=== PATIENT | male | born 1970 | race Caucasian/White ===

== ENCOUNTER → 2017-07-05 | Outpatient (CLI) | payer BC ==
[~2017-07-05] MED LIST: CPR500T PO; HYDR-91 PO; OMEP40CA36 PO; VITA1CAP59 PO
--- NOTE | 2017-07-05 16:03 | Diagnostic Imaging Report ---
PROCEDURE: CT right upper extremity without contrast. TECHNIQUE: Multiple contiguous axial images were obtained through the right upper extremity without the use of intravenous contrast. Sagittal and coronal reformations were then performed. INDICATION: Right hand edema and tingling. FINDINGS: The osseous structures appear unremarkable. There is no soft tissue mass or fluid collection identified. There is mild nonspecific subcutaneous edema seen in the index, middle and ring fingers. The joint alignment is satisfactory. No significant arthritic changes are seen. The muscles and tendons appear grossly unremarkable. IMPRESSION: Nonspecific mild subcutaneous edema around the right index, middle and ring fingers. No focal fluid collection or soft tissue mass is identified. Dictated by: Dictated on workstation # [id number]
== END ==
LOC: RAD 10:29
PROVIDERS: ATTEND Nurse Practitioner Family
DX: R60.0 Localized edema (principal)
CPT/HCPCS: 73200

== ENCOUNTER → 2017-07-26 | Outpatient (CLI) | payer BC ==
[~2017-07-26] MED LIST changes: +IOHEXOL 350 MG/ML 100 ML (OMNIPAQUE 350) VIAL IV ONE; +NS 100 ML (IVPB) BAG IV ONE
--- NOTE | 2017-07-26 14:52 | Diagnostic Imaging Report ---
CT angiogram of the right upper extremity with arterial and venous phase performed. Coronal MIP reconstruction technique images are performed. INDICATION: Right upper extremity swelling. 100 mL of Omnipaque 350 is administered intravenously. FINDINGS: The brachiocephalic artery origin from the arch is normal. The right subclavian artery is normal. The axillary, brachial, and radial and ulnar arteries are normal. The venous phase demonstrates normal opacification of the right upper extremity veins with no major thrombosis or evidence of venous obstruction identified. Mild constriction at the junction of the first rib and clavicle is seen without associated significant caliber change in the vein or thrombosis noted. No evidence of vascular thoracic outlet syndrome findings. The soft tissues of the right upper extremity including the muscle bulk in the arm and forearm appear unremarkable. IMPRESSION: Unremarkable right upper extremity CTA and CTV. Dictated by: Dictated on workstation # [id number]
== END ==
LOC: RAD 12:26
PROVIDERS: ATTEND Nurse Practitioner Family
DX: R22.31 Localized swelling, mass and lump, right upper limb (principal); R29.898 Other symptoms and signs involving the musculoskeletal system
CPT/HCPCS: 73206

== ENCOUNTER → 2018-07-20 | Emergency (ER) | payer SELFPAY ==
[~2018-07-20] VITALS: Ht 182.9 cm; Wt 97.5 kg
[~2018-07-20] MED LIST changes: -IOHEXOL 350 MG/ML 100 ML (OMNIPAQUE 350) VIAL IV ONE; +KETOROLAC 60 MG/2 ML VIAL IM ONE; +LISI-556 PO; -NS 100 ML (IVPB) BAG IV ONE; +PROCHLORPERAZINE 10 MG/2ML INJ (COMPAZINE) IM ONE; +diphenhydrAMINE 25 MG TAB (BENADRYL) PO ONE
--- NOTE | 2018-07-20 15:29 | ED Headache ---
General Chief Complaint: Head/Cervical Problems Stated Complaint: HEADACHE Nursing Triage Note: Pt has had a headache for the past few days, with nausea and body aches. Pt stated it is not from his sinuses. Pt stated that his clef palate is opening and might be from that. Pt stated pain is at a 7 and is constant. Nursing Sepsis Screen: No Definite Risk Source: patient, family () Exam Limitations: no limitations History of Present Illness Date Seen by Provider: Jul 20, 2018 Time Seen by Provider: 14:51 Initial Comments Patient is a 48-year-old male who presents to the emergency room accompanied by his with complaints of a migraine for 2 days. He also has nausea and body aches. Patient reports that he's had a cleft palate since and is concerned that it might be related to that. He states that he tried over-the- counter medications without relief. Timing/Duration: other (2 days) Location: global Prior Headaches/Recent Trauma: no recent headache/trauma Associated Symptoms: nausea/vomiting Allergies and Home Medications Allergies Coded Allergies: meperidine HCl (Verified Allergy, Unknown, 07/20/18) Home Medications Lisinopril 5 Mg Tablet, 5 MG PO DAILY, (Reported) Patient Home Medication List Home Medication List Reviewed: Yes Review of Systems Review of Systems Constitutional: no symptoms reported, see HPI Gastrointestinal: see HPI, nausea Psychiatric/Neurological: See HPI, Headache All Other Systems Reviewed Negative Unless Noted: Yes Past Irbwigh-Bmxypy-Aykdwx Hx Past Med/Social Hx: Reviewed Nursing Past Med/Soc Hx Patient Social History Alcohol Use: Denies Use Recreational Drug Use: Yes (14 YRS AGO) Smoking Status: Current Everyday Smoker Type Used: Cigarettes Recent Foreign Travel: No Contact w/Someone Who Travel: No Recent Infectious Disease Expo: No Recent Hopitalizations: No Physical Abuse: No Sexual Abuse: No Mistreated: No Fear: No Past Medical History Surgeries: Yes (Cleft palate) Respiratory: No Cardiac: No Neurological: No Reproductive Disorders: No Gastrointestinal: No Musculoskeletal: No Endocrine: No Integumentary: No Blood Disorders: No Family Medical History Reviewed Nursing Family Hx Physical Exam Vital Signs Vital Signs - First Documented 07/20/18 14:51 Temp 99.1 Pulse 80 Resp 22 B/P (MAP) 134/95 (108) Pulse Ox 98 O2 Delivery Room Air Capillary Refill : Less Than 3 Seconds Height, Weight, BMI Height: 6'0" Weight: 215lbs. oz. 97.838464dp; BMI Method:Stated General Appearance: WD/WN, no apparent distress HEENT: PERRL/EOMI, normal ENT inspection, TMs normal Neck: non-tender, full range of motion, supple, normal inspection Cardiovascular: normal peripheral pulses, regular rate, rhythm, no edema, no gallop, no JVD, no murmur Respiratory: chest non-tender, lungs clear, normal breath sounds, no respiratory distress, no accessory muscle use Extremities: normal capillary refill Crainal Nerves: normal hearing, normal speech, PERRL Coordination/Gait: normal finger to nose Motor/Sensory: no motor deficit, no sensory deficit Skin: normal color, warm/dry Progress/Results/Core Measures Results/Orders My Orders Orders - JENNIFER HADLEY Ketorolac Injection (Toradol Injection) (07/20/18 15:00) Prochlorperazine Injection (Compazine In (07/20/18 15:00) Diphenhydramine Tablet (Benadryl Tablet) (07/20/18 15:00) Ct Head/Maxillofacial Wo (07/20/18 14:49) Medications Given in ED Vital Signs/I&O 07/20/18 07/20/18 14:51 16:42 Temp 99.1 Pulse 80 70 Resp 22 16 B/P (MAP) 134/95 (108) 127/85 (99) Pulse Ox 98 97 O2 Delivery Room Air Blood Pressure Mean: 108 Progress Progress Note : Time: 16:25 Progress Note I have seen and evaluated the patient. His migraine has resolved at this time. I have informed him of his imaging studies. He agrees with plan of care, plans for discharge, return precautions were given. Diagnostic Imaging Diagonstic Imaging: CT Plain Films/CT/US/NM/MRI: facial bones, head Comments [place], [place] NAME: NANCY SNYDER Ricarda [facility] REC#: [id number] PT STATUS: ADM IN : 12/20/1940 PHYSICIAN: JENNIFER HADLEY ADMIT DATE: 07/20/18/4TH Draft Date of Exam:07/20/18 CT ABDOMEN/PELVIS W PROCEDURE: CT abdomen and pelvis with contrast. TECHNIQUE: Multiple contiguous axial images were obtained through the abdomen and pelvis after administration of intravenous contrast. INDICATION: Bilateral lower abdominal pain right greater than left with symptoms x2 days. CORRELATION STUDY: None. FINDINGS: LOWER THORAX: Visualized lung bases with minimal atelectasis, otherwise clear. Heart size is enlarged. Reflux of contrast into the inferior vena cava could be reflective of right heart failure or tricuspid insufficiency. LIVER: Unremarkable. GALLBLADDER: Cholecystectomy with clips in the fossa. No significant bile duct dilatation. SPLEEN: Unremarkable. PANCREAS: Fatty atrophic changes, otherwise unremarkable. ADRENAL GLANDS: Unremarkable. KIDNEYS: 6.3 cm oval low-density mass interpolar region right kidney most compatible with a cyst. Renal parenchyma otherwise normal enhancement. No hydronephrosis or obstruction. ABDOMINAL AORTA: Mild aortoiliac wall calcification, nonaneurysmal. GASTROINTESTINAL TRACT: There is rather pronounced inflammatory changes of the lower abdomen and pelvis. This appears centered predominantly at the region of the sigmoid colon which contains extensive colonic diverticula to be present. There are scattered small areas of extraluminal gas collection compatible with perforations. A few additional bubbles are noted in the left lower quadrant adjacent to the descending colon. There is no definitive drainable abscess formation at this time. A portion of the appendix is noted in the right lower quadrant with the appendix directed laterally in a retrocecal location. There are a few prominent fluid filled loops of thick walled small bowel within the lower abdomen and pelvis near the area of inflammation, likely reactive changes. Small abdominal wall fat-containing hernia defects. Fat-containing bilaterally inguinal hernias. URINARY BLADDER: Relatively decompressed but otherwise unremarkable. REPRODUCTIVE: Prostate gland appears very small and likely absent. OSSEOUS STRUCTURES: Rather advanced multilevel degenerative changes are present. Marked disc space narrowing. S-type lumbar scoliotic curvature. Advanced degenerative changes in the bilateral hips. OTHER: None. IMPRESSION: 1. Marked inflammatory changes within the lower abdomen and pelvis. Features favor probable rather pronounced acute sigmoid diverticulitis. There is the presence of external gas compatible with likely microperforations. No drainable abscess formation at this time. Likely associated adjacent enteritis. Very close clinical and potentially followup imaging correlation is recommended. Additionally, if colon cancer screening has not been performed, consideration for this after the acute symptoms have subsided would be recommended. CRITICAL FINDINGS Findings have been telephoned to the emergency department at the time of this dictation. Dictated on workstation # [id number] Dict: 07/20/18 1328 Trans: 07/20/18 1422 [facility] [id number] Interpreted by: KIT PORTER DO Electronically signed by: Reviewed: Reviewed by Me Departure Impression Primary Impression: Headache Disposition: 01 HOME, SELF-CARE Condition: Stable Departure-Patient Inst. Decision time for Depature: 16:30 Referrals: NO,LOCAL PHYSICIAN (PCP) Primary Care Physician Patient Instructions: Headache, Adult (DC) Add. Discharge Instructions: Continue to use ibuprofen and Tylenol as directed by the bottle for pain relief. Follow-up with your primary care provider within 1 week for recheck. Return back to the emergency room for any worsening symptoms or concerns as needed. All discharge instructions reviewed with patient and/or family. Voiced understanding. Work/School Note: Work Release Form Date Seen in the Emergency Department: Jul 20, 2018 Return to Work: Jul 22, 2018 Restrictions: No Restrictions JENNIFER HADLEY Jul 20, 2018 15:29
--- NOTE | 2018-07-20 16:24 | Diagnostic Imaging Report ---
PROCEDURE: CT head and maxillofacial without contrast. TECHNIQUE: Multiple contiguous axial images were obtained through the head and facial bones without the use of intravenous contrast. INDICATION: Headache and facial pain. Prior cleft palate repair. COMPARISON: CT temporal bones from 07/04/2014. FINDINGS: CT HEAD: No hyperdense hemorrhage or space-occupying mass. No hydrocephalus or midline shift. Benton-white matter differentiation is well preserved. The basilar cisterns are widely patent. No acute skull fracture. Bilateral mastoid air cells are underpneumatized or have undergone mastoidectomies. Paranasal sinuses are clear. CT FACE: No acute fracture of the mid face or mandible. There is a cleft within the left starr-aspect of the hard palate. There is soft tissue attenuation within the cleft defect likely from surgical repair. The defect does result in communication between the oral cavity and the nasal cavity. Chronic leftward deviation of the nasal septum associated leftward rotation is unchanged. Small mucosal retention cysts are present in the bilateral maxillary sinuses. No air-fluid levels within the paranasal sinuses. Orbits are normal. IMPRESSION: 1. No acute intracranial process. 2. Chronic cleft palate deformity on the left starr-aspect of the hard palate. There are postsurgical changes that are similar in appearance to CT from 07/04/2014. 3. No evidence of acute sinusitis. Dictated by: Dictated on workstation # [id number]
[2018-07-20 16:42] VITALS: BP 127/85
--- OUTSIDE RECORDS SUMMARY | 2018-07-20 18:13 | XMS REPORT | Clinical Summary ---
Author Author [facility] Organization [facility] Address Unknown Phone Unavailable Care Team Providers Care Hazmat Technician Name Role Phone Brandyn Rodriguez MD PCP Allergies Not on File Current Medications Not on file Active Problems Not on file Social History Tobacco Use Types Packs/Day Years Used Date Never Assessed Sex Assigned at Date Recorded Not on file Last Filed Vital Signs Not on file Plan of Treatment Not on file Results Not on filefrom Last 3 Months
--- OUTSIDE RECORDS SUMMARY | 2018-07-20 18:13 | XMS REPORT ---
Author Author MICHI BOYER Organization [facility] [place] Address [address] [place] [address] Care Team Providers Care Community Marketing Manager Name Role Phone MICHI BOYER Unavailable PROBLEMS Type Condition ICD9-CM Code [id number] Code Onset Dates Condition Status SNOMED Code Problem Renal lithiasis N20.0 Active 36037188 ALLERGIES Substance Reaction Event Type Date Status Demerol Unknown Drug Allergy Feb, Active SOCIAL HISTORY Never Assessed PLAN OF CARE VITAL SIGNS MEDICATIONS Medication Instructions Dosage Frequency Start Date End Date Duration Status Potassium 99 MG Orally Once a day 1 tablet 24h Active Lisinopril 20 MG Orally Once a day 1 tablet 24h Active Pravastatin Sodium 40 MG Orally Once a day 1 tablet 24h Active Vitamin B Complex-C - Active Glucosamine Chondroitin Complx - Active Omeprazole 40 mg 1 capsule by Oral route 1 time per day Apr, Active RESULTS No Results PROCEDURES No Known procedures IMMUNIZATIONS No Known Immunizations MEDICAL (GENERAL) HISTORY Type Description Date Surgical History cleft lip repair Surgical History cleft palate repair Surgical History mastoidectomy 1975 Surgical History Ear drum replacment 2016 Hospitalization History Surgery(s) only
--- OUTSIDE RECORDS SUMMARY | 2018-07-20 18:13 | XMS REPORT ---
Author Author DARIUSZ CASTRO Organization [facility] Address [address] [place] [address] Care Team Providers Care Supervisor Firearms Name Role Phone DARIUSZ CASTRO Unavailable PROBLEMS Type Condition ICD9-CM Code [id number] Code Onset Dates Condition Status SNOMED Code Problem Renal lithiasis N20.0 Active 30832702 ALLERGIES Substance Reaction Event Type Date Status Demerol Unknown Drug Allergy January, Active SOCIAL HISTORY Never Assessed PLAN OF CARE VITAL SIGNS Height 72 in 2017-01-20 Weight 228.4 lbs 2017-01-20 Temperature 98.0 degrees Fahrenheit 2017-01-20 Heart Rate 72 bpm 2017-01-20 Respiratory Rate 20 2017-01-20 BMI 30.97 kg/m2 2017-01-20 Blood pressure systolic 134 mmHg 2017-01-20 Blood pressure diastolic 98 mmHg 2017-01-20 MEDICATIONS Medication Instructions Dosage Frequency Start Date End Date Duration Status Omeprazole 40 mg 1 capsule by Oral route 1 time per day Apr, Active Potassium 99 MG Orally Once a day 1 tablet 24h Active Vitamin B Complex-C - Active Pravastatin Sodium 40 MG Orally Once a day 1 tablet 24h Active Lisinopril 20 MG Orally Once a day 1 tablet 24h Active RESULTS No Results PROCEDURES No Known procedures IMMUNIZATIONS No Known Immunizations MEDICAL (GENERAL) HISTORY Type Description Date Surgical History cleft lip repair Surgical History cleft palate repair Surgical History mastoidectomy 1976 Surgical History Ear drum replacment 2016 Hospitalization History Surgery(s) only
--- OUTSIDE RECORDS SUMMARY | 2018-07-20 18:13 | XMS REPORT | Continuity of Care Document ---
Author Author [facility] Organization [facility] Address Unknown Phone Unavailable Allergies Active Description Code Type Severity Reaction Onset Reported/Identified Relationship to Patient Clinical Status Yes NO KNOWN DRUG ALLERGIES NO KNOWN DRUG ALLERG UNKNOWN Yes meperidine HCl [id number] Drug Allergy Unknown N/A 02/02/2012 Medications Medication Packaging Start Date Stop Date Route Dosage Sig ONDANSETRON VIAL INJ 4 MG/2CC (ZOFRAN 2CC VIAL) MG 12/16/2016 12/16/2016 ONCE&1505 FENTANYL INJ 100 MCG/2CC VIAL MCG 12/16/2016 12/16/2016 ONCE&1505 NORMAL SALINE 1000CC IV BAG INJ 0.9 % (NS 1000CC IV BAG) ml 12/16/2016 12/31/2016 CONTINUOUSEVERY 0 Hour Problems Date Dx Coded Attending Type Code Diagnosis Diagnosed By 02/03/2012 Ot 592.0 CALCULUS OF KIDNEY 02/03/2012 Ot 592.1 CALCULUS OF URETER 06/18/2014 MAO NANCE APRN Ot 327.23 OBSTRUCTIVE SLEEP APNEA (ADULT) (PEDIATR 07/20/2014 MARCIO BRANCH, SANDRA Gorman Ot 388.60 12/16/2016 Curt Kaye 848.8 OTHER SPECIFIED SITES OF SPRAINS AND STRAINS 12/16/2016 Curt Kaye S39.012A STRAIN OF MUSCLE, FASCIA AND TENDON OF LOWER BACK, INIT 07/05/2017 Ot 592.0 CALCULUS OF KIDNEY 07/05/2017 Ot 592.1 CALCULUS OF URETER 07/05/2017 Ot V72.83 EXAM PRE- OPERATIVE NEC 07/05/2017 Ot V74.8 SCREEN- BACTERIAL DIS NEC 07/05/2017 Ot 592.0 CALCULUS OF KIDNEY 07/05/2017 Ot 592.0 CALCULUS OF KIDNEY 07/05/2017 Ot 592.1 CALCULUS OF URETER 07/05/2017 MACKENZIE DUARTE MD Ot 786.09 RESPIRATORY ABNORM NEC 07/05/2017 FELICIA MD, BASHAR J Ot 794.31 ABNORM ELECTROCARDIOGRAM 07/05/2017 MARCIO BRANCH, SANDRA Gorman Ot 388.60 OTORRHEA NOS 07/06/2017 KYLIE GERSON Truong APRN Ot R60.0 LOCALIZED EDEMA 07/15/2017 KYLIE GERSON Dionne VALDIVIA Ot R60.0 LOCALIZED EDEMA 08/02/2017 GERSON ESPINAL SKIP Ot M79.631 PAIN IN RIGHT FOREARM 08/02/2017 GERSON ESPINAL Dionne VALDIVIA Ot R22.31 LOCALIZED SWELLING, MASS AND LUMP, RIGHT 08/05/2017 GERSON ESPINAL SKIP Ot R22.31 LOCALIZED SWELLING, MASS AND LUMP, RIGHT 08/05/2017 GERSON ESPINAL SKIP Ot R29.898 OTH SYMPTOMS AND SIGNS INVOLVING THE MUS Procedures There is no data. Results Test Result Range BMP - 12/16/16 15:03 Anion Gap 16 6-14 BUN 14 mg/dL 5-25 Calcium 9.1 mg/dL 8.3-10.4 Chloride 107 mmol/L 95-114 CO2 23 mEq/L 22-33 Creat 0.87 mg/dL 0.50-1.50 eGFR 94 mL/min/1.73m2 >59 Glucose 101 mg/dL 70-110 Osmo 294 280-295 Potassium 4.0 mmol/L 3.5-5.3 Sodium 142 mmol/L 134-148 Encounters ACCT No. Visit Date/Time Discharge Status Pt. Type Provider Facility Loc./Unit Complaint [id number] 07/26/2017 12:26:00 07/26/2017 23:59:59 CLS Outpatient GERSON ESPINAL APRN [facility] RAD RUE EDEMA [id number] 07/12/2017 14:13:00 07/12/2017 23:59:59 CLS Outpatient GERSON ESPINAL APRN [facility] RAD RT FOREARM AND HAND SWELLING X2 MONTHS [id number] 07/05/2017 10:29:00 07/05/2017 23:59:59 CLS Outpatient GERSON ESPINAL APRN [facility] RAD R HAND EDEMA/PAIN TINGLING [id number] 05/13/2017 16:34:00 05/13/2017 23:59:59 CLS Preadmit GERSON ESPINAL APRN [facility] RAD RT HAND EDEMA/PAIN/ TINGLING [id number] 07/04/2014 13:42:00 07/04/2014 23:59:59 CLS Outpatient MARCIO BRANCH, SANDRA Gorman [facility] RAD RECURRENT LT EAR DRAINAGE [id number] 06/18/2014 08:55:00 06/18/2014 14:10:00 DIS Outpatient MAO NANCE APRN [facility] SLEEP SLEEP APNEA SNORING [id number] 02/01/2013 09:22:00 02/01/2013 23:59:59 CLS Outpatient FELICIA BRANCH, MACKENZIE Frank [facility] CARD DYSPNEA [id number] 07/05/2017 12:04:00 Document Registration [id number] 02/03/2012 05:45:00 Document Registration [id number] 02/02/2012 15:39:00 Document Registration [id number] 02/02/2012 14:36:00 Document Registration [id number] 01/28/2012 12:34:00 Document Registration [id number] 12/16/2016 14:09:00 12/16/2016 16:02:00 DIS Outpatient Mik[place] [facility] [place] [id number] 12/16/2016 15:06:54 Document Registration [id number] 06/05/2015 19:16:00 06/05/2015 23:59:59 CLS Outpatient ROEL MONTOYA APRN [facility] QUICK
== END | disposition home or self-care (01) ==
LOC: EDUNIT# 14:31 → ER 14:33
DX: R51 Headache (principal); R10.31 Right lower quadrant pain; R10.32 Left lower quadrant pain; F17.210 Nicotine dependence, cigarettes, uncomplicated; Z88.8 Allergy status to other drugs, medicaments and biological substances
CPT/HCPCS: 70450; 70486

== ENCOUNTER 2018-11-05 22:34 | Emergency (ER) | payer SELFPAY ==
[~2018-11-05] VITALS: Ht 182.9 cm; Wt 92.1 kg
[~2018-11-05 22:34] MED LIST changes: -KETOROLAC 60 MG/2 ML VIAL IM ONE; -PROCHLORPERAZINE 10 MG/2ML INJ (COMPAZINE) IM ONE; -diphenhydrAMINE 25 MG TAB (BENADRYL) PO ONE
[2018-11-05] MEDS ORDERED: ONDA4TAB11 PO (23:29)
--- NOTE | 2018-11-05 23:30 | ED Cough/URI ---
General Chief Complaint: Cough/Cold/Flu Symptoms Stated Complaint: FLU LIKE SYMPTOMS Nursing Triage Note: Pt. advises family members have already been dx with influenza A. Pt. states he has been experiencing a headache, fevers, nausea/vomiting and diarrhea for several days without improvement. Pt. is afebrile at arrival 98.3. Sepsis Screen: No Definite Risk Source: patient Exam Limitations: no limitations History of Present Illness Date Seen by Provider: Nov 05, 2018 Time Seen by Provider: 23:16 Initial Comments The patient presents to ER by private conveyance with chief complaint of nausea vomiting diarrhea off-and-on as well as cough, runny nose. He has a history of cleft palate. Everybody in his household has been diagnosed with influenza. His symptoms started about 3 or 4 days ago. He's been having fevers of 101. He's been using Tylenol and Motrin. His cough is nonproductive. He has no wheezing or history of asthma. No other significant medical history but he did have recently about a year ago his left eardrum repaired with cadaveric tympano-him which improved his hearing. He feels slight fullness but no pain in his ears. No discharge from the ears. Allergies and Home Medications Allergies Coded Allergies: meperidine HCl (Verified Allergy, Unknown, 11/05/18) Home Medications Lisinopril 5 Mg Tablet, 5 MG PO DAILY, (Reported) Ondansetron 4 Mg Tab.rapdis, 4 MG PO Q6H PRN for NAUSEA/VOMITING Prescribed by: MAHI WALLS on 11/05/18 2442 Patient Home Medication List Home Medication List Reviewed: Yes Review of Systems Review of Systems Constitutional: No chills, No diaphoresis EENTM: see HPI; No ear discharge, No hearing loss, No ear pain, No eye pain Respiratory: cough; No phlegm, No short of breath, No wheezing Cardiovascular: No chest pain, No edema Gastrointestinal: No abdominal pain, No constipation; diarrhea, nausea, vomiting Genitourinary: No discharge, No dysuria Musculoskeletal: No back pain, No joint pain Skin: No pruritus Past Lxoqwbx-Nwgwkm-Qqzugq Hx Patient Social History Alcohol Use: Denies Use Recreational Drug Use: No (14 YRS AGO) Type Used: Cigarettes Recent Foreign Travel: No Contact w/Someone Who Travel: No Recent Infectious Disease Expo: No Recent Hopitalizations: No Seasonal Allergies Seasonal Allergies: No Past Medical History Surgeries: Yes (Cleft palate) Respiratory: No Cardiac: Yes Hypertension Neurological: No Reproductive Disorders: No Gastrointestinal: No Musculoskeletal: No Endocrine: No HEENT: No Cancer: No Psychosocial: No Integumentary: No Blood Disorders: No Physical Exam Vital Signs - First Documented 11/05/18 23:10 Temp 98.3 Pulse 68 Resp 14 B/P (MAP) 135/75 (95) Pulse Ox 97 O2 Delivery Room Air Capillary Refill : Less Than 3 Seconds Height: 6'0" Weight: 203lbs. oz. 92.442652dg; BMI Method:Stated General Appearance: WD/WN, no apparent distress Eyes: Bilateral Eye Normal Inspection, Bilateral Eye PERRL, Bilateral Eye EOMI HEENT: PERRL/EOMI, TMs normal, other Neck: non-tender, full range of motion, normal inspection Respiratory: chest non-tender, lungs clear, normal breath sounds, no respiratory distress, no accessory muscle use Cardiovascular: normal peripheral pulses, regular rate, rhythm, no edema Neurologic/Psychiatric: alert, normal mood/affect, oriented x 3 Progress/Results/Core Measures Suspected Sepsis Recent Fever Within 48 Hours: No Infection Criteria Present: None New/Unexplained Altered Menta: No Sepsis Screen: No Definite Risk SIRS Temperature:98.3 Pulse: 68 Respiratory Rate: 14 Blood Pressure 135 /75 Mean: 95 Results/Orders Micro Results Microbiology 11/05/18 Influenza Types A,B Antigen (BRY) - Final, Complete My Orders Orders - MAHI WALLS Influenza A And B Antigens (11/05/18 22:36) Vital Signs/I&O 11/05/18 11/05/18 23:10 23:10 Temp 98.3 Pulse 68 Resp 14 B/P (MAP) 135/75 (95) Pulse Ox 97 O2 Delivery Room Air Room Air Capillary Refill : Less Than 3 Seconds Blood Pressure Mean: 95 Progress Note : Time: 23:28 Progress Note Influenza swab. We've offered Zofran but the patient has Phenergan at home he is using. We'll give him a note for work as well. Departure Impression Primary Impression: Upper respiratory infection Qualified Codes: J06.9 - Acute upper respiratory infection, unspecified Disposition: HOME, SELF-CARE Condition: Stable Departure-Patient Inst. Decision time for Depature: 23:55 Referrals: DANTE OCAMPO DO (PCP/Family) Primary Care Physician Patient Instructions: Viral Upper Respiratory Infection, Adult (DC) Add. Discharge Instructions: Drink plenty of fluids use humidifiers and vapor rubs such as Vicks or Mentholatum. Tylenol and ibuprofen can be helpful for body aches fevers or chills. Disinfect surfaces with historiographer and use proper handwashing. Jice-jos-chamcws nasal decongestants and other medicines as necessary. Use her Phenergan as prescribed or the Zofran 1 tablet every 6 hours as needed for nausea. All discharge instructions reviewed with patient and/or family. Voiced understanding. Scripts Ondansetron (Ondansetron Odt) 4 Mg Tab.rapdis 4 MG PO Q6H PRN for NAUSEA/VOMITING, #8 TAB 0 Refills Prov: MAHI WALLS 11/05/18 Work/School Note: Work Release Form Date Seen in the Emergency Department: Nov 05, 2018 Return to Work: Nov 08, 2018 Restrictions: No Restrictions MAHI WALLS Nov 05, 2018 23:30
[2018-11-06] VITALS: BP 133/89
== END 2018-11-06 | disposition home or self-care (01) ==
LOC: EDUNIT# 22:34 → ER 22:36
DX: J06.9 Acute upper respiratory infection, unspecified (principal); I10 Essential (primary) hypertension; Z88.8 Allergy status to other drugs, medicaments and biological substances
CPT/HCPCS: 87804

== ENCOUNTER 2019-10-18 17:12 | Emergency (ER) | payer OTHER ==
[~2019-10-18] VITALS: Ht 182 cm; Wt 95.4 kg
[~2019-10-18 17:12] MED LIST changes: +ONDA4TAB11 PO
--- NOTE | 2019-10-18 18:02 | ED Upper Extremity ---
General Chief Complaint: Upper Extremity Stated Complaint: RT HAND SWELLING Nursing Triage Note: OF FAST TRACK ONE TO TRIAGE WITH COMPLAINTS OF RIGHT HAND SWELLING X2 YEARS. DENIES INJURY. Nursing Sepsis Screen: No Definite Risk Source: patient Exam Limitations: no limitations History of Present Illness Date Seen by Provider: Oct 18, 2019 Time Seen by Provider: 17:44 Initial Comments Patient resents to ER by private conveyance with his significant other chief complaint that he has had some swelling and contractures and limited range of extension in his right hand third digit for about 2-1/2 years now. He had injected in [place] in 2017 and said that at became swollen and hurt for about 2 weeks. It has progressively gotten worse and he has not followed up with anyone since then. He has not had any recent trauma to it and and has no numbness or tingling. He does not take any medications for it. He does not follow with a primary care doctor nor take any routine medications. 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 Allergies and Home Medications Allergies Coded Allergies: meperidine HCl (Verified Allergy, Unknown, 11/05/18) Patient Home Medication List Home Medication List Reviewed: Yes Review of Systems Constitutional: No chills, No diaphoresis EENTM: No ear discharge, No ear pain Respiratory: No cough, No short of breath Cardiovascular: No chest pain, No edema Gastrointestinal: No abdominal pain, No constipation Genitourinary: No discharge, No hesitancy Musculoskeletal: see HPI; No joint swelling, No neck pain Past Nputibo-Coydue-Nittbw Hx Patient Social History Alcohol Use: Denies Use Recreational Drug Use: Yes Drug of Choice: POT Smoking Status: Current Everyday Smoker Type Used: Cigarettes Recent Foreign Travel: No Contact w/Someone Who Travel: No Recent Infectious Disease Expo: No Recent Hopitalizations: No Seasonal Allergies Seasonal Allergies: No Past Medical History Surgeries: Yes (Cleft palate) Respiratory: No Cardiac: Yes Hypertension Neurological: No Reproductive Disorders: No Gastrointestinal: No Musculoskeletal: No Endocrine: No HEENT: No Cancer: No Psychosocial: No Integumentary: No Blood Disorders: No Physical Exam Vital Signs Vital Signs - First Documented 10/18/19 17:22 Temp 37.0 Pulse 70 Resp 16 B/P (MAP) 183/95 (124) Pulse Ox 97 O2 Delivery Room Air Capillary Refill : Less Than 3 Seconds Height, Weight, BMI Height: 6'0" Weight: 203lbs. oz. 92.859493nt; 28.00 BMI Method:Stated General Appearance: WD/WN, no apparent distress HEENT: PERRL/EOMI, pharynx normal Neck: full range of motion, normal inspection Cardiovascular: normal peripheral pulses, regular rate, rhythm Respiratory: no respiratory distress, no accessory muscle use Elbow/Forearm: normal inspection, non-tender Wrist: Yes normal inspection, Yes non-tender Hand: Right, stiffness (contracture of the flexor tendons of the third digit right hand.), swelling (soft tissue swelling around the proximal metacarpophalangeal joint moderate.) Progress/Results/Core Measures Results/Orders Vital Signs/I&O 10/18/19 17:22 Temp 37.0 Pulse 70 Resp 16 B/P (MAP) 183/95 (124) Pulse Ox 97 O2 Delivery Room Air Blood Pressure Mean: 124 Progress Progress Note : Time: 18:01 Progress Note Suspected might have a Dupuytren's contracture. This is a chronic issue and we'll refer him to appropriate hand surgeon. We'll encourage NSAIDs if he's having pain. He has declined any steroid injections today. Departure Impression Primary Impression: Dupuytren's contracture of right hand Disposition: 01 HOME, SELF-CARE Condition: Stable Departure-Patient Inst. Decision time for Depature: 18:02 Referrals: DANTE OCAMPO DO (PCP/Family) Primary Care Physician LISA DAY DO Patient Instructions: Dupuytren's Contracture Add. Discharge Instructions: Please call and follow-up with the hand for management of your contracture hand. Tylenol 1000 mg every 8 hours as needed for pain. Ibuprofen 800 mg every 8 hours as needed for pain. Heat and gentle passive stretching may be helpful temporarily. All discharge instructions reviewed with patient and/or family. Voiced understanding. MAHI WALLS Oct 18, 2019 18:02
[2019-10-18 18:07] VITALS: BP 183/95
== END 2019-10-18 18:07 | disposition home or self-care (01) ==
LOC: EDUNIT# 17:12 → ER 17:15
DX: M72.0 Palmar fascial fibromatosis [Dupuytren] (principal); F17.210 Nicotine dependence, cigarettes, uncomplicated; Z88.6 Allergy status to analgesic agent
CPT/HCPCS: 99282

== ENCOUNTER → 2019-11-27 | Outpatient (CLI) | payer OTHER ==
--- NOTE | 2019-11-27 15:50 | Diagnostic Imaging Report ---
PROCEDURE: CT abdomen and pelvis without contrast. TECHNIQUE: Multiple contiguous axial images were obtained through the abdomen and pelvis without the use of intravenous contrast. Auto Exposure Controls were utilized during the CT exam to meet ALARA standards for radiation dose reduction. INDICATION: Right upper quadrant abdominal pain. 80-pound weight loss. Diarrhea. COMPARISON: None. FINDINGS: Included portions of lung bases are clear. CT abdomen: Small bowel loops are nondistended. Normal appendix is identified. Single nonobstructive left renal calculus is noted. No renal calculi are seen on the right. No ureteral calculi are seen on either side. Additionally, there is no hydronephrosis or other evidence of obstruction on either side. No renal masses are identified on this noncontrast exam. The spleen, pancreas, liver, and adrenal glands have an unremarkable noncontrast CT appearance. There is no loculated fluid collection, free fluid, nor free air within the abdomen. No abnormal mesenteric or retroperitoneal adenopathy is seen. Osseous structures show no acute abnormalities. CT pelvis: Urinary bladder is unopacified. No calculi are seen within urinary bladder. There is no loculated fluid collection, free fluid, nor free air within the pelvis. No abnormal lymph nodes are identified. Osseous structures show no acute abnormalities. IMPRESSION: 1. Single nonobstructive left renal calculus. 2. Otherwise, unremarkable noncontrast CT of the abdomen and pelvis. Dictated by: Dictated on workstation # [id number]
== END ==
LOC: RAD 15:13
PROVIDERS: ATTEND Physician Assistant
DX: N20.0 Calculus of kidney (principal); R10.11 Right upper quadrant pain; R19.5 Other fecal abnormalities
CPT/HCPCS: 74176